=== PATIENT | male | born 1975 | race Two or more races ===

== ENCOUNTER 2020-01-20 23:10 | Emergency (ER) | payer SELFPAY ==
--- NOTE | 2020-01-21 00:25 | NUR ---
CALLED PT IN [facility]. NO ONE RESPONDED.
--- NOTE | 2020-01-21 00:36 | NUR ---
CALLED [facility] [place] NO ONE RESPONDED.
--- NOTE | 2020-01-21 00:49 | NUR ---
CALLED [facility] [place], NO ONE IN [place].
== END 2020-01-21 00:50 | disposition left against medical advice (07) ==
LOC: ER 23:15
DX: Z53.21 Procedure and treatment not carried out due to patient leaving prior to being seen by health care provider (principal)